=== PATIENT | male | born 2000 | race Caucasian/White ===

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

== ENCOUNTER 2019-06-02 10:26 | Emergency (ER) | payer OTHER ==
[2019-06-02] MEDS ORDERED: ACETAMINOPHEN 500 MG TABLET (FP) PO ONE (10:41)
[2019-06-02 10:43] VITALS: BP 126/58; PULSE 62; TEMP 97.8; BMI 31.6
[2019-06-02] MEDS ORDERED: ACETAMINOPHEN 500 MG TABLET (FP) ONE (10:45)
--- NOTE | 2019-06-02 10:54 | PDOC ---
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 Meds: Asa, C , Metoprolol ALL: NKDA Social: Denies alcohol, drug, cigarettes Currently an technical support intern with [employer] Is a college student, plays baseball, left handed pitcher Family history: CAD in Aunt ( age 40) ROS: GENERAL/CONSTITUTIONAL: No: fever, chills, weakness, loss of appetite. HEAD, EYES, EARS, NOSE AND THROAT: No: change in vision, ear pain, discharge, sore throat, throat swelling. CARDIOVASCULAR: No: chest pain, lightheadedness, palpitations, syncope RESPIRATORY: No: cough, shortness of breath, wheezing, hemoptysis, stridor. GASTROINTESTINAL: No: nausea, vomiting, diarrhea, abdominal pain GENITOURINARY: No: dysuria, hematuria, frequency MUSCULOSKELETAL: Yes: right shoulder pain No: back pain, neck pain SKIN AND BREASTS: No: lesions, pallor, rash or easy bruising. NEUROLOGIC: No: headache, vertigo, paresthesias, weakness ENDOCRINE: No: unexplained weight gain or loss HEMATOLOGIC/LYMPHATIC: No: anemia, easy bleeding, swelling nodes. PE: General: Appears well, non-toxic. Skin: Warm and dry. No lesions or rashes of exposed skin appreciated. HEENT Exam: Head is symmetrical, midline, NC/AT. Ears are symmetrical without erythema or ecchymosis. Eyes symmetrical. Conjunctivae pink. Sclerae white. Corneas clear. PERRLA, EOM intact Nose without any discharge or swelling. Mouth: Oral mucosa is moist and pink. There is no exudate, erythema of the oropharynx, airway is patent. Neck is symmetrical, supple. Trachea is midline. FROM CARD: RRR, no murmur PULM: CTA B/L ABD: no abd distention or tenderness Musculoskeletal: No deformities, swelling, ecchymosis of the upper extremities bilaterally. To palpation of the lateral, superior aspect of the lateral right shoulder. No tenderness to palpation of the DIPs, PIPs, MCPs, phalanges, metacarpals, carpals, ulna, radius, elbow bilaterally. Decreased active extension of right shoulder. Full passive range of motion of the upper extremities bilaterally. Internal and external rotation intact but painful. Positive empty beer can test. Pt pain is posterior shoulder. Radial pulses 2+ and equal bilaterally. Capillary refill less than 2 seconds bilaterally. Neurologic: The patient is awake, alert, oriented x3. Gross motor and sensory exam is found to be intact. Muscle strength 5/5 of upper extremities bilaterally. Sensation of distal upper extremities intact. DTRs, brachioradialis , biceps, triceps, 1-2+ and equal bilaterally.' SKIN: Well healed surgical scars, no rashes 06/02/19 11:12 06/03/19 08:10 Past History - Past Medical History Allergies/Adverse Reactions: Allergies Allergy/AdvReac Type Severity Reaction Status Date / Time No Known Allergies Allergy Verified 06/02/19 10:48 Home Medications: Ambulatory Orders Aspirin [ASA -] 81 mg PO DAILY 11/18/16 Metoprolol Succinate [Toprol XL -] 12.5 mg PO DAILY 11/18/16 Rosuvastatin [Crestor -] 5 mg PO DAILY 11/18/16 Cardiac Disorders: Yes (cad at age 13) - Surgical History Cardiac Surgery: Yes (bypass) - Immunization History Immunization Up to Date: Yes - Suicide/Smoking/Psychosocial Hx Smoking History: Never smoked Have you smoked in the past 12 months: No Hx Alcohol Use: No Drug/Substance Use Hx: No Substance Use Type: None Medical Decision Making - Medical Decision Making 06/02/19 10:54 LHD male presenting with right shoulder pain s/p fall Doubt fracture Possible ligamentous injury vs. rotator cuff Will do: xray tylenol for pain Re assess Follow up with Ortho 06/02/19 11:05 Shoulder Xray: no fracture or dislocation seen Will discharge to home Motrin/tylenol for pain Follow up with ortho *DC/Admit/Observation/Transfer Diagnosis at time of Disposition: Shoulder injury Qualifiers: Encounter type: initial encounter Laterality: right Qualified Code(s): S49.91XA - Unspecified injury of right shoulder and upper arm, initial encounter Shoulder pain, right Qualifiers: Chronicity: acute Qualified Code(s): M25.511 - Pain in right shoulder - Discharge Dispostion Disposition: HOME Condition at time of disposition: Stable Decision to Admit order: No - Referrals Referrals: Arnoldo Bhagat MD [Primary Care Provider] - Junior Woody MD [Staff Physician] - - Patient Instructions Printed Discharge Instructions: DI for Shoulder Sprain, DI for Shoulder Pain Additional Instructions: Thank you for coming in to the ER today Your xray preliminarily appears normal Please take motrin 600mg every 6 hours OR Tylenol 1000mg every 6 hours as needed for pain You can also apply a Lidoderm patch for pain as needed (they are over the counter) Avoid re injuring your shoulder You must follow up with the patient registration specialist within 1 week Return to the ER for any other concerns or complaints - Post Discharge Activity Forms/Work/School Notes: Back to Work
== END 2019-06-02 11:17 | disposition home or self-care (01) ==
LOC: FER 10:26
DX: S49.91XA Unspecified injury of right shoulder and upper arm, initial encounter (principal); M25.521 Pain in right elbow; W18.39XA Other fall on same level, initial encounter; Y93.H2 Activity, gardening and landscaping; Y92.89 Other specified places as the place of occurrence of the external cause; Y99.0 Civilian activity done for income or pay
CPT/HCPCS: 73030-TC-RT-FY; 99281-25